=== PATIENT | female | born 1990 | race Caucasian/White ===

== ENCOUNTER 2017-01-30 17:45 | Inpatient (IN) | payer MEDICAID, OTHER ==
[~2017-01-30] VITALS: Ht 165.1 cm; Wt 123.0 kg
[~2017-01-30 17:45] MED LIST: HYDR-3533 PO; MONOTAB PO; PENI500T PO
[2017-01-30 20:10] VITALS: BP 120/66; PULSE 71; RESP 19; TEMP 100.2; O2SAT 99
[2017-01-30] MEDS ORDERED: SODIUM CHLOR 0.45% 1000 ML INJ 1,000 ML IV SCH (20:24)
[2017-01-30] MEDS ORDERED: SODIUM CHLORIDE 0.9% FLUSH 10 ML FLUSH IV FLUSH PRN (20:30)
[2017-01-30] MEDS ORDERED: SODIUM CHLOR 0.9% 1000 ML INJ 1,000 ML IV SCH (20:30)
[2017-01-30] MEDS ORDERED: NALOXONE HCL 0.4 MG/ML AMP IV PRN (20:30)
[2017-01-30] MEDS ORDERED: ONDANSETRON HCL 4 MG/2 ML VIAL IVP PRN (20:30)
[2017-01-30] MEDS ORDERED: SENNOSIDES 8.6 MG TAB PO PRN (20:30)
[2017-01-30] MEDS ORDERED: ACETAMINOPHEN 325 MG TAB PO PRN (20:30)
[2017-01-30] MEDS ORDERED: MAGNESIUM HYDROXIDE SUSP 30 ML CUP PO PRN (20:30)
[2017-01-30] MEDS ORDERED: ACETAMINOPHEN/HYDROcodone 325 MG/5 MG TAB PO PRN (20:45)
[2017-01-30] MEDS: SODIUM CHLORIDE 0.9% FLUSH 10 ML FLUSH IV FLUSH SCH (21:00)
[2017-01-30] MEDS: MORPHINE SULFATE 4 MG/ML INJ IV PUSH PRN (22:07)
[2017-01-31 00:52] VITALS: BP 107/61; PULSE 95; RESP 17; TEMP 99.4; O2SAT 99
[2017-01-31] MEDS: MORPHINE SULFATE 4 MG/ML INJ IV PUSH PRN ×2 (01:46→06:27)
[2017-01-31 04:01] VITALS: BP 114/58; PULSE 93; RESP 18; TEMP 99.9; O2SAT 100
[2017-01-31 05:47] LABS: AUTOMATED NEUTROPHIL # 7.3 TH/MM3 (1.8-7.7); BASOPHIL % 0.5 % (0.0-2.0); EOSINOPHIL % 0.3 % (0.0-4.0); HEMATOCRIT 33.9 % (35.0-46.0); HEMO FLAGS DIFF FINAL; LYMPH % 14.2 % (9.0-44.0); LYMPHOCYTE # 1.3 TH/MM3 (1.0-4.8); MEAN CELL VOLUME 87.2 FL (80.0-100.0); MEAN CORPUSCULAR HEMOGLOBIN 29.9 PG (27.0-34.0); MEAN CORPUSCULAR HGB CONC 34.3 % (32.0-36.0); MONO % 7.6 % (0.0-8.0); NEUT % 77.4 % (16.0-70.0); PLATELET COUNT 233 TH/MM3 (150-450); RED BLOOD COUNT 3.89 MIL/MM3 (4.00-5.30); RED CELL DISTRIBUTION WIDTH 12.7 % (11.6-17.2); WHITE BLOOD COUNT 9.5 TH/MM3 (4.0-11.0)
[2017-01-31 05:57] LABS: APTT (PATIENT) 26.1 SEC (24.3-30.1); PROTHROMBIN TIME - PATIENT 11.1 SEC (9.8-11.6)
[2017-01-31 06:15] LABS: ALKALINE PHOSPHATASE 48 U/L (45-117); ALT (GPT) 20 U/L (10-53); ANION GAP 7 MEQ/L (5-15); AST (GOT) 13 U/L (15-37); BICARBONATE 26.6 MEQ/L (21.0-32.0); BLOOD UREA NITROGEN 11 MG/DL (7-18); CHLORIDE 106 MEQ/L (98-107); GLOMERULAR FILTRATION RATE 93 ML/MIN (>89); POTASSIUM 4.1 MEQ/L (3.5-5.1); SODIUM (NA) 140 MEQ/L (136-145); TOTAL BILIRUBIN ADULT 0.3 MG/DL (0.2-1.0)
--- NOTE | 2017-01-31 07:02 | PD.ORT.PN ---
Subjective Subjective Remarks Fell when rockclimbing in [place] on Tuesday. Right talus fracture. No other complaints or injuries Objective Vitals Vital Signs Date Time Temp Pulse Resp B/P Pulse Ox O2 Delivery O2 Flow Rate FiO2 01/31/17 04:01 99.9 93 18 114/58 100 01/31/17 00:52 99.4 95 17 107/61 99 01/30/17 20:10 100.2 71 19 120/66 99 I/O 01/30/17 01/30/17 01/30/17 01/31/17 01/31/17 01/31/17 07:00 15:00 23:00 07:00 15:00 23:00 Intake Total 240 ml Balance 240 ml Intake Oral 240 ml # Voids 2 # Bowel Movements 0 Result Diagram: 01/31/17 0535 01/31/17 0535 Other Results Laboratory Tests Test 01/31/17 05:35 Prothrombin Time 11.1 SEC (9.8-11.6) Prothromb Time International 1.0 RATIO Ratio Objective Remarks Right lower extremity: Splint intact with mild swelling over talus no pain with knee or hip range of motion. Left lower extremity: Full range of motion neurovascularly intact Assessment & Plan Assessment and Plan Left talus fracture X-rays and CT reviewed from [facility] Nothing by mouth Surgery this morning with Dr. Thacker for open reduction internal fixation of talus We'll plan for discharge to home this evening or tomorrow Nigel Tello Jr. Jan 31, 2017 07:02
[2017-01-31] MEDS ORDERED: GENTAMICIN SULFATE 80 MG/2 ML VIAL ONE (07:05)
[2017-01-31 07:08] VITALS: BP 113/61; PULSE 86; RESP 16; TEMP 97.2; O2SAT 98
[2017-01-31] MEDS ORDERED: BUPIVACAINE/EPINEPHRINE 0.5% PF 30 ML VIAL ONE (07:09)
[2017-01-31] MEDS ORDERED: VANCOMYCIN HCL 1000 MG VIAL ONE (07:37)
[2017-01-31] MEDS ORDERED: SODIUM CHLOR 0.9% 250 ML INJ 250 ML ONE (07:37)
[2017-01-31] MEDS ORDERED: ceFAZolin 2 GM PREMIX 50 ML ONE (07:37)
[2017-01-31] MEDS ORDERED: DOCUSATE SODIUM 50 MG/SENNA 8.6 MG TAB PO PRN (07:45)
[2017-01-31] MEDS ORDERED: POVIDONE IODINE 5% (ANTISEPSIS KIT) 4 APPLICATIONS EACH NARE PRN (07:45)
[2017-01-31] MEDS ORDERED: CHLORHEXIDINE GLUCONATE 2 % 1 PACK (2 CLOTHS) TOPICAL PRN (07:45)
[2017-01-31] MEDS ORDERED: METOPROLOL TARTRATE 25 MG TAB PO PRN (07:45)
[2017-01-31] MEDS ORDERED: SODIUM CHLORID 0.9% 500 ML IV PRN (07:45)
[2017-01-31] MEDS ORDERED: INSULIN HUMAN REGULAR 1,000 UNITS/10 ML VIAL SQ PRN (07:45)
[2017-01-31] MEDS ORDERED: LACTATED RINGER'S 1000 ML IV PRN (08:00)
--- NOTE | 2017-01-31 08:01 | HHI.HP ---
HPI Service [facility] Hospitalists Primary Care Physician Unknown Admission Diagnosis talus fracture Diagnoses: (1) Talus fracture Diagnosis: Principal Chief Complaint: Ankle fracture Travel History International Travel<30 Days: No Contact w/Intl Traveler <30 Da: No Traveled to Known Affected Are: No History of Present Illness This pleasant 26-year-old female patient denies prior medical history. Patient reports she was outdoor rock climbing in [place] this Tuesday when she, "baled out of a climb, one foot hit the pad and the other did not." The patient was initially seen in a hospital in [place] told that she had a fracture that needed surgical intervention. Patient has a son and lives locally therefore they drove through the night so patient could have treatment locally. Initially seen at [facility] then transferred to [place] for ORIF right talus today. Patient reports her the pain in her right ankle is currently 5 out of 10. Initially when it was 10 out of 10 better with pain medication. Worse with weightbearing. Patient denies radiation of the pain. Patient has intact sensation right lower extremity, is able to wiggle toes and does have brisk cap refill of right lower extremity. Patient reports low-grade temperature 100.2 last night but denies cough congestion dysuria. Patient offers no other complaints denies shortness of breath chest pain nausea vomiting diarrhea constipation or chills. Review of Systems Except as stated in HPI: all other systems reviewed are Neg Past Family Social History Past Medical History denies prior medical history including diabetes hypertension and CAD CVA asthma Past Surgical History Breast augmentation Reported Medications Reports she takes no medications of daily basis at home Allergies: Coded Allergies: No Known Allergies (Verified , 05/03/15) Active Ordered Medications Current Medications Medications (Trade) Dose Ordered Sig/Dinh Route Start Time Stop Time Status Last Admin (NS Flush) 2 ml UNSCH PRN IV FLUSH 01/30/17 20:30 (NS Flush) 2 ml BID IV FLUSH 01/30/17 21:00 01/30/17 21:00 (Tylenol) 650 mg Q4H PRN PO 01/30/17 20:30 (Zofran Inj) 4 mg Q6H PRN IVP 01/30/17 20:30 (Milk Of [place] Liq) 30 ml Q12H PRN PO 01/30/17 20:30 (Senokot) 17.2 mg Q12H PRN PO 01/30/17 20:30 (Narcan Inj) 0.4 mg UNSCH PRN IV 01/30/17 20:30 ([place] 5-325 Mg) 1 tab Q4H PRN PO 01/30/17 20:45 Morphine Sulfate 2 mg 2 mg Q3H PRN IV PUSH 01/30/17 20:45 01/31/17 06:27 (Lr 1000 ml Inj) 1,000 ml @ 0 mls/hr Q0M PRN IV 01/31/17 08:00 02/03/17 07:59 Family History Mother had mild skin cancer denies other family history including CAD OK CVA COPD or anesthesia reaction Social History EtOH use occasional socially Denies tobacco use and denies illicit drug use Physical Exam Vital Signs Vital Signs Date Time Temp Pulse Resp B/P Pulse Ox O2 Delivery O2 Flow Rate FiO2 01/31/17 04:01 99.9 93 18 114/58 100 01/31/17 00:52 99.4 95 17 107/61 99 01/30/17 20:10 100.2 71 19 120/66 99 Physical Exam GENERAL: This is a well-nourished, well-developed patient, in no apparent distress. SKIN: No rashes, ecchymoses or lesions. Cool and dry. HEAD: Atraumatic. Normocephalic. No temporal or scalp tenderness. EYES: Pupils equal round and reactive. Extraocular motions intact. No scleral icterus. No injection or drainage. ENT: Nose without bleeding, purulent drainage or septal hematoma. Throat without erythema, tonsillar hypertrophy or exudate. Uvula midline. Airway patent. NECK: Trachea midline. No JVD or lymphadenopathy. Supple, nontender, no meningeal signs. CARDIOVASCULAR: Regular rate and rhythm without murmurs, gallops, or rubs. RESPIRATORY: Clear to auscultation. Breath sounds equal bilaterally. No wheezes , rales, or rhonchi. GASTROINTESTINAL: Abdomen soft, non-tender, nondistended. No hepato-splenomegaly , or palpable masses. No guarding. MUSCULOSKELETAL: Extremities without clubbing, cyanosis, or edema. No joint tenderness, effusion, or edema noted. No calf tenderness. Negative Homans sign bilaterally. Splint to right lower extremity NEUROLOGICAL: Awake and alert. No focal deficits appreciated. Motor and sensory grossly within normal limits. Five out of 5 muscle strength in all muscle groups, difficult to test strength right lower extremity is is currently a soft splint. Able to wiggle toes and right lower extremity and does have intact sensation. Normal speech. Laboratory Laboratory Tests Test 01/31/17 05:35 White Blood Count 9.5 Red Blood Count 3.89 Hemoglobin 11.7 Hematocrit 33.9 Mean Corpuscular Volume 87.2 Mean Corpuscular Hemoglobin 29.9 Mean Corpuscular Hemoglobin 34.3 Concent Red Cell Distribution Width 12.7 Platelet Count 233 Mean Platelet Volume 7.9 Neutrophils (%) (Auto) 77.4 Lymphocytes (%) (Auto) 14.2 Monocytes (%) (Auto) 7.6 Eosinophils (%) (Auto) 0.3 Basophils (%) (Auto) 0.5 Neutrophils # (Auto) 7.3 Lymphocytes # (Auto) 1.3 Monocytes # (Auto) 0.7 Eosinophils # (Auto) 0.0 Basophils # (Auto) 0.0 CBC Comment DIFF FINAL Differential Comment Prothrombin Time 11.1 Prothromb Time International 1.0 Ratio Activated Partial 26.1 Thromboplast Time Sodium Level 140 Potassium Level 4.1 Chloride Level 106 Carbon Dioxide Level 26.6 Anion Gap 7 Blood Urea Nitrogen 11 Creatinine 0.75 Estimat Glomerular Filtration 93 Rate Random Glucose 95 Calcium Level 8.6 Total Bilirubin 0.3 Aspartate Amino Transf 13 (AST/SGOT) Alanine Aminotransferase 20 (ALT/SGPT) Alkaline Phosphatase 48 Total Protein 6.8 Albumin 3.6 Result Diagram: 01/31/1735 01/31/17 0535 Imaging Profore the hospital reviewed reveals Right talus fracture Assessment and Plan Problem List: (1) Talus fracture ICD Code: S92.109A Status: Acute Assessment and Plan This pleasant 26-year-old female patient denies prior medical history. Patient reports she was outdoor rock climbing in [place] this Tuesday when she, "baled out of a climb, one foot hit the pad and the other did not." The patient was initially seen in a hospital in [place] told that she had a fracture (right talus ) that needed surgical intervention. Patient has a son and lives locally therefore they drove through the night so patient could have treatment locally. Right talus fracture Plan surgical intervention this a.m. with Dr. Bustos Anticoagulation per orthopedic surgery Pain medication per surgery Weight-bearing and rehabilitation per surgery recommendations Plan to discharge once cleared by surgery Full code Written by Claudine Jarvis, acting as scribe for Dr. Gallego on 01/31/17 at 08: 00. All or portions of this note were transcribed by scribchiara Jarvis. I, Dr. Lynn Gallego personally performed the history, physical exam, and medical decision making; and confirmed the accuracy of the information in the transcribed note. Authenticated by Dr. Lynn Gallego on 01/31/17 at 0800. Code Status full Physician Certification 2 Midnight Certification Type: Admission for Inpatient Services Order for Inpatient Services The services are ordered in accordance with Medicare regulations or non- Medicare payer requirements, as applicable. In the case of services not specified as inpatient-only, they are appropriately provided as inpatient services in accordance with the 2-midnight benchmark. Estimated LOS (days): 3 days is the estimated time the patient will need to remain in the hospital, assuming treatment plan goals are met and no additional complications. Post-Hospital Plan: Not yet determined Claudine Jarvis Jan 31, 2017 08:01 Lynn Gallego MD Jan 31, 2017 18:58
[2017-01-31] MEDS ORDERED: FAMOTIDINE 20 MG/2 ML VIAL ONE (08:08)
[2017-01-31] MEDS ORDERED: MIDAZOLAM HCL 2 MG/2 ML VIAL ONE (08:08)
[2017-01-31] MEDS ORDERED: DEXAMETHASONE SOD PHOS 4 MG/ML VIAL ONE (08:08)
[2017-01-31] MEDS ORDERED: ACETAMINOPHEN 1000 MG/100 ML VIAL IV ONE (08:08)
[2017-01-31 08:52] LABS: BETA HCG QUANT LESS THAN 1 MIU/ML (0-5)
[2017-01-31] MEDS ORDERED: ceFAZolin 2 GM PREMIX 50 ML IV ONE (09:00)
[2017-01-31] MEDS: SODIUM CHLORIDE 0.9% FLUSH 10 ML FLUSH IV FLUSH SCH ×2 (09:00→19:17)
--- NOTE | 2017-01-31 10:25 | HHI.PR ---
cc: Rayo Bustos MD Immediate Post Op Note Procedure Date: Jan 31, 2017 Pre Op Diagnosis: Comminuted right talus fracture Post Op Diagnosis: Surgeon: Rayo Bustos Fixed Wing Aircraft Flight Engineer(s): Kade Tello PA-C The surgical procedure was assisted by my physician pharmacy innovation assistant. My P.A. presence was necessary throughout this case for the manipulation and positioning of the surgical extremity. My P.A. was assisting me throughout the duration of this procedure. The skill set of a physician pharmacy innovation assistant was medically necessary to complete this procedure. During the surgical case the surgical instrument technician was working at the back table and the physician pharmacy innovation assistant was directly assisting me. Procedure: Open reduction internal fixation right talus Estimated blood loss: 50 cc Anesthesia: General Drains: None Patient to: PACU Patient Condition: Good Rayo Bustos MD Jan 31, 2017 10:25
[2017-01-31] MEDS ORDERED: Post-op Orders (for Pharmacy) MISC XX ONE (10:30)
[2017-01-31] MEDS ORDERED: MORPHINE SULFATE 4 MG/ML INJ IV PUSH PRN (10:30)
--- NOTE | 2017-01-31 10:32 | RADRPT ---
EXAM DATE/TIME: 01/31/2017 09:59 [facility] COMPARISON: FLUOROSCOPY PORTABLE UP TO 1HR, January 31, 2017, 0:00. INDICATIONS : Right talus fracture repair. OR. MEDICAL HISTORY : None. SURGICAL HISTORY : None. ENCOUNTER: Initial ACUITY: 1 day PAIN SCORE: Non-responsive. LOCATION: Right talus FINDINGS: The examination demonstrates multiple screws across the patient's comminuted talar fracture. The alig nment post fixation is good. CONCLUSION: The patient's talar fracture post fixation. Dominick Suggs MD on January 31, 2017 at 10:29 Board Certified Radiologist. This report was verified electronically.
[2017-01-31] MEDS ORDERED: HYDR-3366 PO (10:38)
[2017-01-31] MEDS ORDERED: fentaNYL CITRATE 250 MCG/5 ML AMP ONE (10:56)
[2017-01-31] MEDS ORDERED: *morphine SULFATE 8 MG/ML PERIprocedure ONLY ONE (11:21)
[2017-01-31] MEDS ORDERED: ONDANSETRON HCL 4 MG/2 ML VIAL IV PUSH ONE (12:00)
[2017-01-31] MEDS ORDERED: LACTATED RINGER'S 1000 ML INJ 1,000 ML IV ONE (12:00)
[2017-01-31] MEDS ORDERED: PHENYLEPH/NS 1000 MCG/10 ML SYR IV ONE (12:00)
[2017-01-31] MEDS ORDERED: NEOSTIGMINE 3 MG/3 ML SYR IV ONE (12:00)
[2017-01-31] MEDS ORDERED: PROPOFOL 200 MG/20 ML AMP IV ONE (12:00)
[2017-01-31 12:12] VITALS: O2SAT 98
--- NOTE | 2017-01-31 13:30 | MB ---
cc: ARTISMAYNOR DATE OF CONSULTATION: 01/31/2017 REASON FOR CONSULTATION Comminuted right talus fracture. CONSULTING PHYSICIAN Dr. Lynn Gallego HISTORY OF PRESENT ILLNESS Constantin is a 26-year-old female who was visiting [place]. She was rock climbing. She states that she had to bail out of her climb and fell approximately 12 feet. She landed with one foot on the pad and the other off the pad. She had immediate right ankle pain. She initially went to the hospital in [place]. She was placed into a splint. She lives in the [facility]. She presented back to [facility] and then was transferred to [place] for definitive treatment. She is currently awake and alert. She complains of right ankle pain. Pain is worse with movement and is improved with rest. Her only complaint is her right ankle. She has no dizziness, syncope or loss of consciousness. PAST MEDICAL HISTORY ILLNESSES None. SURGERIES Breast augmentation. MEDICATIONS None. ALLERGIES None. FAMILY HISTORY Positive for skin cancer in her mother. SOCIAL HISTORY The patient denies tobacco or drug use. She drinks alcohol occasionally. REVIEW OF SYSTEMS The patient denies headache, visual changes, neck pain, chest pain, shortness of breath, abdominal pain, nausea, vomiting or recent weight loss. She complains of right ankle pain. PHYSICAL EXAMINATION GENERAL: The patient is a well-developed, well-nourished 26-year-old female in no acute distress. She is awake and alert. She is alert and oriented x3. VITAL SIGNS: Temperature 97.2, pulse 86, respirations 16, blood pressure 115/61. O2 sat is 98% on room air. HEAD: The patient is normocephalic. Pupils are equal. NECK: Soft, nontender. Trachea is midline. ABDOMEN: Soft, nontender, nondistended. EXTREMITIES: Examination of bilateral upper extremities reveals no pain with shoulder, elbow or wrist motion. She has intact sensation in all fingers. She has good cap refill in all fingers. Skin is intact. Real Estate Valuer strength is +5. Radial pulses are palpable. Examination of left leg reveals no pain with hip, knee or ankle motion. Skin is intact. Dorsalis pedis pulse is palpable. Sensation is intact. Examination of right leg reveals no pain with hip or knee motion. She has mild swelling of her foot. She is tender to palpation over the talus. Dorsalis pedis pulse is palpable. Sensation is intact to her toes. IMAGING Radiographic x-rays and CT scan were reviewed from [facility]. The patient has a comminuted displaced right talar neck fracture. IMPRESSION Comminuted right talus fracture. PLAN The treatment options were discussed with the patient. I discussed open reduction, internal fixation of right talus fracture. The risks of surgery include bleeding, infection, injuries to arteries, nerves and blood vessels, nonunion, malunion, avascular necrosis, ankle arthritis, subtalar joint arthritis, pain, avascular necrosis, as well as medical complications including complications of anesthesia and blood clots. All questions were answered. I will plan on surgery today. A mid-level provider in my office (nurse practitioner or physician tutoring assistant) may see this patient on follow-up visits and continue to implement the objectives of this plan including: Starting or adjusting medications, injections , cast application, orthotics, brace application, physical therapy, radiological studies (including x-ray, MRI, CT, ultrasound, bone scan), vascular studies, neurologic studies, specialist consultation, and proceeding with surgical management, as appropriate. MD COLIN Villalta/VANNESSA /10:28 AM /1:15 PM LISE
[2017-01-31 15:05] VITALS: BP 124/60; PULSE 93; RESP 16; TEMP 98.2; O2SAT 97
[2017-01-31] MEDS: ACETAMINOPHEN/HYDROcodone 325 MG/10 MG TAB PO PRN ×2 (15:42→20:29)
[2017-01-31 20:00] VITALS: BP 100/61; PULSE 70; RESP 16; TEMP 98; O2SAT 98
[2017-02-01] VITALS: BP 112/58; PULSE 71; RESP 17; TEMP 96.8; O2SAT 98
[2017-02-01] MEDS: ACETAMINOPHEN/HYDROcodone 325 MG/10 MG TAB PO PRN ×2 (00:10→06:39)
[2017-02-01 04:00] VITALS: BP 109/73; PULSE 61; RESP 16; TEMP 96.9; O2SAT 99
[2017-02-01 04:47] LABS: BACTERIA, URINE OCC /hpf; BLOOD, URINE NEG (NEG); GLUCOSE,URINE NEG (NEG); HYALINE CAST, URINE 1 /lpf (RARE); KETONE, URINE 10 mg/dL (NEG); MUCUS URINE FEW /lpf (OCC); NITRITE,URINE NEG (NEG); PH, URINE 6.5 (5.0-8.5); SQUAMOUS EPITHELIAL CELL URINE 7 /hpf (0-5); TRANSITIONAL EPI CELLS, URINE <1 /hpf; URINE COLOR YELLOW (YELLW/STRAW)
[2017-02-01 04:50] LABS: COMMENT (UR) CULT NOT INDICATED; CULTURE IF INDICATED CULT NOT INDICATED
[2017-02-01 06:25] LABS: HEMATOCRIT 30.6 % (35.0-46.0); REVIEW FLAG FINAL
--- NOTE | 2017-02-01 06:42 | PD.ORT.PN ---
Subjective Subjective Remarks Resting comfortably with no new complaints Objective Vitals Vital Signs Date Time Temp Pulse Resp B/P Pulse Ox O2 Delivery O2 Flow Rate FiO2 02/01/17 04:00 96.9 61 16 109/73 99 02/01/17 00:00 96.8 71 17 112/58 98 01/31/17 20:00 98.0 70 16 100/61 98 01/31/17 15:05 98.2 93 16 124/60 97 01/31/17 12:12 98 21 01/31/17 11:45 98.0 73 15 118/74 97 Room Air 01/31/17 11:30 71 14 112/72 98 Room Air 01/31/17 11:15 70 14 122/73 99 Room Air 01/31/17 11:00 75 14 121/72 100 Room Air 01/31/17 10:48 98.2 92 14 120/67 100 Nasal Cannula 2 01/31/17 07:08 97.2 86 16 113/61 98 I/O 01/31/17 01/31/17 01/31/17 02/01/17 02/01/17 02/01/17 07:00 15:00 23:00 07:00 15:00 23:00 Intake Total 0 ml 1480 ml 240 ml 240 ml Output Total 75 ml Balance 0 ml 1405 ml 240 ml 240 ml Intake Oral 0 ml 480 ml 240 ml 240 ml IV Total 200 ml Other 800 ml Output Estimated Blood Loss 75 ml # Voids 1 2 1 1 # Bowel Movements 0 0 0 0 Result Diagram: 02/01/17 0527 01/31/17 0535 Imaging Last 72 hours Impressions Ankle X-Ray 01/31/17 0000 Signed Impressions: Service Date/Time: Tuesday, January 31, 2017 09:59 - CONCLUSION: The patient's talar fracture post fixation. Dominick Suggs MD Objective Remarks Right lower extremity: Splint intact , clean and dry. Intact sensation distally in all her toes and is able to move toes appropriately Left lower extremity: Full range of motion neurovascularly intact Assessment & Plan Assessment and Plan Left talus fracture status post open reduction internal fixation POD 1 Maintain splint Elevate Nonweightbearing left lower extremity Plan for discharge to home today follow-up with Dr. Bustos or [place] in 2 weeks Nigel Tello Jr. Feb 01, 2017 06:42
[2017-02-01 08:00] VITALS: BP 111/65; PULSE 76; RESP 19; TEMP 97.7; O2SAT 98
[2017-02-01] MEDS: SODIUM CHLORIDE 0.9% FLUSH 10 ML FLUSH IV FLUSH SCH (08:04)
[2017-02-01 09:32] VITALS: O2SAT 98
[2017-02-01] MEDS ORDERED: PERI8.6T PO (11:31)
--- NOTE | 2017-02-01 11:34 | HHI.PR ---
Subjective Remarks Pt feeling better. Pain is well controlled. Denies any CP/SOB/N/V Objective Vitals Vital Signs Date Time Temp Pulse Resp B/P Pulse Ox O2 Delivery O2 Flow Rate FiO2 02/01/17 08:00 97.7 76 19 111/65 98 02/01/17 04:00 96.9 61 16 109/73 99 02/01/17 00:00 96.8 71 17 112/58 98 01/31/17 20:00 98.0 70 16 100/61 98 01/31/17 15:05 98.2 93 16 124/60 97 01/31/17 12:12 98 21 01/31/17 11:45 98.0 73 15 118/74 97 Room Air I/O 01/31/17 01/31/17 01/31/17 02/01/17 02/01/17 02/01/17 07:00 15:00 23:00 07:00 15:00 23:00 Intake Total 0 ml 1480 ml 240 ml 240 ml Output Total 75 ml Balance 0 ml 1405 ml 240 ml 240 ml Intake Oral 0 ml 480 ml 240 ml 240 ml IV Total 200 ml Other 800 ml Output Estimated Blood Loss 75 ml # Voids 1 2 1 1 # Bowel Movements 0 0 0 0 Result Diagram: 02/01/17 0527 01/31/17 0535 Imaging Last Impressions Ankle X-Ray 01/31/17 0000 Signed Impressions: Service Date/Time: Tuesday, January 31, 2017 09:59 - CONCLUSION: The patient's talar fracture post fixation. Dominick Suggs MD Objective Remarks GENERAL: This is a well-nourished, well-developed patient, in no apparent distress. CARDIOVASCULAR: Regular rate and rhythm without murmurs, gallops, or rubs. RESPIRATORY: Clear to auscultation. Breath sounds equal bilaterally. No wheezes GASTROINTESTINAL: Abdomen soft, non-tender, nondistended. No hepato-splenomegaly , or palpable masses. No guarding. MUSCULOSKELETAL: Extremities without edema. splint/dressing over right extremity NEUROLOGICAL: Awake and alert. Motor and sensory grossly otherwise normal limits. Normal speech. A/P Problem List: (1) Talus fracture ICD Code: S92.109A Status: Acute Assessment and Plan Left talus fracture status post open reduction internal fixation POD 1 oper ortho, she should Maintain splint and Elevate LE Nonweightbearing left lower extremity follow-up with Dr. Bustos or [place] in 2 weeks scripts for pain meds and stool softner in chart Lynn Gallego MD Feb 01, 2017 11:34
[2017-02-01 11:44] VITALS: BP 104/72; PULSE 90; RESP 18; TEMP 98.5; O2SAT 99
--- NOTE | 2017-02-02 14:15 | MP ---
cc: RAYO THACKER DATE OF SURGERY: 01/31/2017 PREOPERATIVE DIAGNOSIS Comminuted right talus fracture. POSTOPERATIVE DIAGNOSIS Comminuted right talus fracture. SURGEON Rayo Thacker MD ASSISTANTS Kade Tello PA-C The surgical procedure was assisted by my physician elementary assistant principal. My P.A. presence was necessary throughout this case for the manipulation and positioning of the surgical extremity. My P.A. was assisting me throughout the duration of this procedure. The skill set of a physician elementary assistant principal was medically necessary to complete this procedure. During the surgical case the surgical orderly was working at the back table and the physician elementary assistant principal was directly assisting me. PROCEDURE Open reduction, internal fixation of comminuted right talus fracture. ESTIMATED BLOOD LOSS 50 cc. PLAN OF ACTIVITY Strict non-weightbearing. DETAILS OF PROCEDURE Constantin is a 26-year-old female who was rock climbing two days ago when she fell approximately 12 feet. Informed consent was obtained. The operative site was marked. I had a detailed discussion with the patient regarding the risks and benefits of surgery as well as potential complications. All questions were answered. She was brought to the operating room and placed on the OR table. She was given IV sedation and general anesthesia. The right leg was prepped with alcohol followed by Hibiclens and draped in the usual sterile fashion. She received IV antibiotics. A timeout procedure was performed. The procedure began with a three-inch incision over the lateral aspect of the ankle and talus. The subcutaneous tissue was dissected with Bovie. A standard lateral approach to the talus was utilized. The extensor digitorum brevis was mobilized to allow for visualization of the talar neck. There was significant comminution of the fracture. At this point a second incision was made over the medial aspect of the talus. The subcutaneous tissue was dissected with Bovie. The joint capsule was opened with Bovie. A small portion of the navicular bone was excised using an osteotome to allow better visualization of the talar head. At this point attention was turned to reduction. There was comminution of the fracture site. There were multiple small bone fragments entrapped within the fracture. These were removed to allow for reduction. At this point the fracture fragments were mobilized. The talar neck was reduced first. K-wires were used to hold provisional fixation. Both the medial and lateral sides of the talar neck appeared in excellent alignment. There was also a lateral process of the talus fracture. This was also manually reduced. This keyed into excellent alignment. K-wires were used to hold provisional fixation. At this point two Synthes guide pins for the 4.0 cannulated screws were placed through the medial side of the talar head into the talar body. Fluoroscopy confirmed appropriate guide pin placement. Screw lengths were measured. A countersink was utilized. Two appropriate length screws were placed. Good compression was applied. The screw heads were placed beneath the articular surface to avoid articular surface irritation. An additional 3.5 cortical screw was placed across the lateral aspect of the talar neck. An additional 2.7 cortical lag screw was placed across the lateral process fragment. K-wires were removed. Final fluoroscopy revealed excellent alignment of fracture with well-placed hardware. The incision was thoroughly irrigated. The fascia was closed with #1 Vicryl. The subcutaneous tissue was closed with 3-0 Vicryl and skin was closed with 3-0 nylon. Sterile dressings were applied. The patient was awakened and transferred to the recovery room in stable condition. MD COLIN Villalta/VANNESSA /10:32 AM /2:02 PM
== END 2017-02-01 13:34 | disposition home or self-care (01) | DRG 505 ==
LOC: N06A 17:45
PROVIDERS: ADMIT Hospitalist; ATTEND Hospitalist
PROC: 0QSL04Z Reposition Right Tarsal with Internal Fixation Device, Open Approach (ICD-10-PCS; principal; 2017-01-31 08:25)
DX: S92.101A Unspecified fracture of right talus, initial encounter for closed fracture (principal); W17.89XA Other fall from one level to another, initial encounter; Y93.31 Activity, mountain climbing, rock climbing and wall climbing; Y92.89 Other specified places as the place of occurrence of the external cause
CPT/HCPCS: 73610; 76000; 80053; 81001; 84702; 85014; 85018; 85025; 85610; 85730; 94150; C1713; J0131; J0690; J1100; J1580; J2250; J2270; J2370; J2405; J2710; J3010; J3370; J7030; J7050; J7120

== ENCOUNTER 2017-12-13 09:21 | Emergency (ER) | payer MEDICAID ==
[~2017-12-13] VITALS: Ht 165.1 cm; Wt 54.5 kg
[~2017-12-13 09:21] MED LIST changes: +HYDR-3366 PO; +PERI8.6T PO
[2017-12-13 09:22] VITALS: BP 118/63; PULSE 93; RESP 18; TEMP 99.2; O2SAT 100
[2017-12-13] MEDS ORDERED: SODIUM CHLOR 0.9% 1000 ML INJ 1,000 ML IV ONE (10:00)
[2017-12-13] MEDS ORDERED: SODIUM CHLORIDE 0.9% FLUSH 10 ML FLUSH IVF PRN (10:00)
[2017-12-13] MEDS ORDERED: KETOROLAC TROMETHAMINE 30 MG/ML (IVP) VIAL IVP ONE (10:00)
[2017-12-13] MEDS ORDERED: ONDANSETRON HCL 4 MG/2 ML VIAL IVP ONE (10:00)
--- NOTE | 2017-12-13 10:00 | PD ---
HPI . Flank pain Chief Complaint: Complaint Time Seen by Provider: 09:44 Travel History International Travel<30 days: No Contact w/Intl Traveler<30days: No Traveled to known affect area: No History of Present Illness HPI Patient presents with right flank pain. Onset was actually a couple weeks ago. The pain initially waxed and waned, came and went. It became acutely worse yesterday. It is now associated with fevers and chills. The pain is rated 6/ 10. She has also had nausea. She states that she had symptoms of a urinary tract infection 2 weeks ago quitting dysuria, frequency and urgency. She did not seek medical care at that time and did not take any [id number] medications for it. This spontaneously resolved after about a week. She does not currently have any symptoms of urinary tract infection. She states that she has a friend who said that Dorene. She states that he checked her urine yesterday and found signs of infection. He gave her Cipro. She has had 2 doses. She has not noted any improvement in her symptoms with the Cipro. REPLACED BY [facility] Past Medical History Medical History: Denies Significant Hx Cancer: No Cardiovascular Problems: No Endocrine: No Genitourinary: No Musculoskeletal: No Neurologic: No Psychiatric: No Respiratory: No Tetanus Vaccination: Unknown Influenza Vaccination: No ?: Not LMP: 11/04/17 Past Surgical History Other Surgery: Yes (breast augmentation) Social History Alcohol Use: Yes (occasionally) Tobacco Use: No Substance Use: No Allergies-Medications (Allergen,Severity, Reaction): Coded Allergies: No Known Allergies (Verified Adverse Reaction, Unknown, 12/13/17) Reported Meds & Prescriptions Reported Meds & Active Scripts Active No Active Prescriptions or Reported Medications Review of Systems Except as stated in HPI: all other systems reviewed are Neg General / Constitutional: Positive: Fever, Chills Gastrointestinal: Positive: Nausea, No: Vomiting Genitourinary: Positive: Flank Pain, No: Urgency, Frequency, Dysuria Physical Exam Narrative GENERAL: Awake and alert. She looks comfortable. SKIN: warm/dry. Normal color and turgor. HEAD: Normocephalic. Atraumatic. EYES: Pupils equal and round. No scleral icterus. No injection or drainage. ENT: No nasal bleeding or discharge. Mucous membranes pink and moist. NECK: Trachea midline. Full range of motion without pain.. CARDIOVASCULAR: Regular rate and rhythm. RESPIRATORY: No accessory muscle use. Clear to auscultation. Breath sounds equal bilaterally. GASTROINTESTINAL: Abdomen soft. Nontender. Bowel sounds present. Nondistended. : Positive right CVA tenderness. MUSCULOSKELETAL: No obvious deformities. NEUROLOGICAL: Awake and alert. No obvious cranial nerve deficits. Motor grossly within normal limits. Normal speech. PSYCHIATRIC: Appropriate mood and affect; insight and judgment normal. Data Data Last Documented VS Vital Signs Date Time Temp Pulse Resp B/P (MAP) Pulse Ox O2 Delivery O2 Flow Rate FiO2 12/13/17 09:22 99.2 93 18 118/63 (81) 100 Room Air Orders Orders Basic Metabolic Panel (Bmp) (12/13/17 09:46) Complete Blood Count With Diff (12/13/17 09:46) Urinalysis - C+S If Indicated (12/13/17 09:46) Ct Abd/Pel W/O Iv Contrast (12/13/17 09:46) Iv Access Insert/Monitor (12/13/17 09:46) Ketorolac Inj (Toradol Inj) (12/13/17 10:00) Ondansetron Inj (Zofran Inj) (12/13/17 10:00) Sodium Chloride 0.9% Flush (Ns Flush) (12/13/17 10:00) Sodium Chlor 0.9% 1000 Ml Inj (Ns 1000 M (12/13/17 10:00) Ed Urine Pregnancytest Poc (12/13/17 09:46) Urine Culture (12/13/17 10:10) Labs Laboratory Tests Test 12/13/17 10:10 White Blood Count 8.8 TH/MM3 Red Blood Count 4.09 MIL/MM3 Hemoglobin 12.8 GM/DL Hematocrit 36.9 % Mean Corpuscular Volume 90.0 FL Mean Corpuscular Hemoglobin 31.2 PG Mean Corpuscular Hemoglobin Concent 34.7 % Red Cell Distribution Width 12.6 % Platelet Count 225 TH/MM3 Mean Platelet Volume 7.5 FL Neutrophils (%) (Auto) 75.7 % Lymphocytes (%) (Auto) 13.6 % Monocytes (%) (Auto) 10.0 % Eosinophils (%) (Auto) 0.5 % Basophils (%) (Auto) 0.2 % Neutrophils # (Auto) 6.6 TH/MM3 Lymphocytes # (Auto) 1.2 TH/MM3 Monocytes # (Auto) 0.9 TH/MM3 Eosinophils # (Auto) 0.0 TH/MM3 Basophils # (Auto) 0.0 TH/MM3 CBC Comment DIFF FINAL Differential Comment Urine Color YELLOW Urine Turbidity HAZY Urine pH 6.0 Urine Specific [place] 1.021 Urine Protein 30 mg/dL Urine Glucose (UA) NEG mg/dL Urine Ketones 10 mg/dL Urine Occult Blood MOD Urine Nitrite NEG Urine Bilirubin NEG Urine Urobilinogen LESS THAN 2.0 MG/DL Urine Leukocyte Esterase LARGE Urine RBC 10 /hpf Urine WBC 48 /hpf Urine WBC Clumps RARE Urine Squamous Epithelial Cells 10 /hpf Urine Transitional Epithelial Cells <1 /hpf Urine Renal Epithelial Cells 1 /hpf Urine Bacteria RARE /hpf Urine Mucus FEW /lpf Microscopic Urinalysis Comment CULTURE INDICATED Blood Urea Nitrogen 12 MG/DL Creatinine 0.86 MG/DL Random Glucose 65 MG/DL Calcium Level 8.6 MG/DL Sodium Level 140 MEQ/L Potassium Level 3.5 MEQ/L Chloride Level 106 MEQ/L Carbon Dioxide Level 28.7 MEQ/L Anion Gap 5 MEQ/L Estimat Glomerular Filtration Rate 80 ML/MIN [facility] Medical Decision Making Medical Screen Exam Complete: Yes Emergency Medical Condition: Yes Differential Diagnosis Differential diagnosis of flank pain includes but is not limited to kidney stone , pyelonephritis, musculoskeletal pain, PE Narrative Course Patient presents with flank pain associated with fevers and chills. She states that her urine was examined yesterday by digital music instructor with signs of infection. She'll be evaluated for possible pyelonephritis or renal calculus. While awaiting her workup, she'll be treated with IV fluids, IV Zofran and IV Toradol. CBC & BMP Diagram 12/13/17 10:10 Calcium Level 8.6 UA>>large LE, 10 RBCs, 48 WBCs, rare WBC clumps, rare bact Last Impressions Abdomen/Pelvis CT 12/13/17 0989 Signed Impressions: Service Date/Time: Wednesday, December 13, 2017 10:29 - CONCLUSION: 1. 3 nonobstructing renal calculi on the right. The largest stone measures 9 mm. 2. No acute abnormality observed. Vadim Schmitz Jr., MD I will give her a dose of Rocephin. Will give her a referral to urology. Diagnosis Primary Impression: Flank pain Additional Impressions: Urinary tract infection Qualified Codes: N30.00 - Acute cystitis without hematuria Renal calculi Referrals: Waylon Olguin MD 2 days Patient Instructions: General Instructions, Kidney Stones (DC), Urinary Tract Infection in Women (DC) Additional Instructions: Continue the Cipro for now. We will let you know if it needs to be changed. It is imperative that you follow-up with urology in the near future. Med/Other Pt SpecificInfo: Prescription(s) given Scripts Promethazine (Phenergan) 25 Mg Tablet 25 MG PO Q6H Y for NAUSEA OR VOMITING, #15 TAB 0 Refills Prov: Jayla Kahn MD 12/13/17 Hydrocodone-Acetaminophen ([place]) 5 Mg-325 Mg Tab 1 TAB PO Q4H Y for PAIN, #15 TAB 0 Refills Prov: Jayla Kahn MD 12/13/17 Tamsulosin (Flomax) 0.4 Mg Cap 0.4 MG PO HS for Manage Prostate Problems, #30 CAP 0 Refills Prov: Jayla Kahn MD 12/13/17 Disposition: 01 DISCHARGE HOME Condition: Stable Jayla Kahn MD Dec 13, 2017 10:00
[2017-12-13 10:34] LABS: AUTOMATED NEUTROPHIL # 6.6 TH/MM3 (1.8-7.7); BASOPHIL % 0.2 % (0.0-2.0); EOSINOPHIL % 0.5 % (0.0-4.0); HEMATOCRIT 36.9 % (35.0-46.0); HEMOGLOBIN 12.8 GM/DL (11.6-15.3); LYMPH % 13.6 % (9.0-44.0); LYMPHOCYTE # 1.2 TH/MM3 (1.0-4.8); MEAN CORPUSCULAR HEMOGLOBIN 31.2 PG (27.0-34.0); MEAN CORPUSCULAR HGB CONC 34.7 % (32.0-36.0); MEAN PLATELET VOLUME 7.5 FL (7.0-11.0); MONOCYTE # 0.9 TH/MM3 (0-0.9); NEUT % 75.7 % (16.0-70.0); PLATELET COUNT 225 TH/MM3 (150-450); RED BLOOD COUNT 4.09 MIL/MM3 (4.00-5.30); RED CELL DISTRIBUTION WIDTH 12.6 % (11.6-17.2); WHITE BLOOD COUNT 8.8 TH/MM3 (4.0-11.0)
[2017-12-13 10:48] LABS: BACTERIA, URINE RARE /hpf; BILIRUBIN, URINE NEG (NEG); BLOOD, URINE MOD (NEG); GLUCOSE,URINE NEG (NEG); KETONE, URINE 10 mg/dL (NEG); MUCUS URINE FEW /lpf (OCC); NITRITE,URINE NEG (NEG); RENAL EPITHELIAL CELLS 1 /hpf; SQUAMOUS EPITHELIAL CELL URINE 10 /hpf (0-5); TRANSITIONAL EPI CELLS, URINE <1 /hpf; URINE COLOR YELLOW (YELLW/STRAW); URINE LEUKOCYTE ESTERASE LARGE (NEG); WHITE BLOOD CELL CLUMPS RARE
--- NOTE | 2017-12-13 10:50 | RADRPT ---
EXAM DATE/TIME: 12/13/2017 10:29 [facility] COMPARISON: No previous studies available for comparison. INDICATIONS : Right flank pain. Nausea, fever. ORAL CONTRAST: No oral contrast ingested. RADIATION DOSE: 6.77 CTDIvol (mGy) MEDICAL HISTORY : None SURGICAL HISTORY : None. ENCOUNTER: Initial ACUITY: 1 day PAIN SCALE: 6/10 LOCATION: Right flank TECHNIQUE: Volumetric scanning of the abdomen and pelvis was performed. Using automated exposure control and ad justment of the mA and/or kV according to patient size, radiation dose was kept as low as reasonably achievable to obtain optimal diagnostic quality images. DICOM format image data is available electro nically for review and comparison. FINDINGS: LOWER LUNGS: The visualized lower lungs are clear. LIVER: Homogeneous density without lesion. There is no dilation of the biliary tree. No calcified gallston es. SPLEEN: Normal size without lesion. PANCREAS: Within normal limits. KIDNEYS: 3 nonobstructing stones seen on the right. The largest measures 9 mm. No stones on the left. No urete ral stones or hydronephrosis on either side. No perinephric stranding. ADRENAL GLANDS: Within normal limits. VASCULAR: There is no aortic aneurysm. BOWEL/MESENTERY: The stomach, small bowel, and colon demonstrate no acute abnormality. There is no free intraperitone al air or fluid. ABDOMINAL WALL: Within normal limits. RETROPERITONEUM: There is no lymphadenopathy. BLADDER: No wall thickening or mass. REPRODUCTIVE: Within normal limits. INGUINAL: There is no lymphadenopathy or hernia. MUSCULOSKELETAL: Within normal limits for patient age. CONCLUSION: 1. 3 nonobstructing renal calculi on the right. The largest stone measures 9 mm. 2. No acute abnormality observed. Vadim Schmitz Jr., MD on December 13, 2017 at 10:45 Board Certified Radiologist. This report was verified electronically.
[2017-12-13 10:58] LABS: BICARBONATE 28.7 MEQ/L (21.0-32.0); CALCIUM 8.6 MG/DL (8.5-10.1); CREATININE 0.86 MG/DL (0.50-1.00)
[2017-12-13] MEDS ORDERED: PROM25TA10 PO (11:04)
[2017-12-13] MEDS ORDERED: TAMS5CAP PO (11:04)
[2017-12-13] MEDS ORDERED: NORC5TAB PO (11:04)
[2017-12-13] MEDS ORDERED: cefTRIAXone INJ 1,000 MG in SODIUM CHLORIDE 0.9% INJ 100 ML IV ONE (11:15)
[2017-12-13 11:48] VITALS: BP 120/65; PULSE 85; RESP 16; O2SAT 100
== END 2017-12-13 11:49 | disposition home or self-care (01) ==
LOC: NEPD 09:21
DX: N30.00 Acute cystitis without hematuria (principal); N20.0 Calculus of kidney
CPT/HCPCS: 74176; 80048; 81001; 84703; 85025; 87086; 96361; 96365; 96375; 99284; J0696; J1885; J2405; J7030

== ENCOUNTER → 2018-01-18 | Day surgery (SDC) | payer MEDICAID ==
[~2018-01-18] VITALS: Ht 165.1 cm; Wt 52.8 kg
[~2018-01-18] MED LIST changes: +CHLORHEXIDINE GLUCONATE 2 % 1 PACK (2 CLOTHS) TOPICAL PRN; -HYDR-3366 PO; -HYDR-3533 PO; +LACTATED RINGER'S 1000 ML IV PRN; +LIDOCAINE HCL 1% PF 5 ML SYRINGE OTHER ONE; +METOPROLOL TARTRATE 25 MG TAB PO PRN; +MIDAZOLAM HCL 2 MG/2 ML VIAL ONE; -MONOTAB PO; +MORPHINE SULFATE 2 MG/ML INJ IV PRN; +NORC5TAB PO; +ONDANSETRON HCL 4 MG/2 ML VIAL IV PUSH PRN; -PENI500T PO; -PERI8.6T PO; +POVIDONE IODINE 5% (ANTISEPSIS KIT) 4 APPLICATIONS EACH NARE PRN; +PROM25TA10 PO; +PROPOFOL 200 MG/20 ML AMP IV ONE; +PROPOFOL 500 MG/50 ML INJ 50 ML ONE; +SODIUM CHLORID 0.9% 500 ML IV PRN; +TAMS5CAP PO; +ceFAZolin 1,000 MG/NS 100 ML IV SCH; +oxyCODONE/ACETAMINOPHEN 5 MG/325 MG TAB ONE; +oxyCODONE/ACETAMINOPHEN 5 MG/325 MG TAB PO PRN
--- NOTE | 2018-01-18 09:45 | RADRPT ---
EXAM DATE/TIME: 01/18/2018 08:55 [facility] COMPARISON: No previous studies available for comparison. INDICATIONS : Pre op for lithotrypsy MEDICAL HISTORY : kidney stones SURGICAL HISTORY : None. ENCOUNTER: Initial ACUITY: 1 day PAIN SCORE: 0/10 LOCATION: Bilateral abdomen FINDINGS: 1 cm stone midportion right kidney. No calcifications on the left. CONCLUSION: Right renal stone. Paul Suggs MD FACR on January 18, 2018 at 9:41 Board Certified Radiologist. This report was verified electronically.
[2018-01-18 09:46] LABS: AUTOMATED NEUTROPHIL # 2.8 TH/MM3 (1.8-7.7); BASOPHIL % 0.5 % (0.0-2.0); EOSINOPHIL # 0.1 TH/MM3 (0-0.4); HEMATOCRIT 39.2 % (35.0-46.0); LYMPH % 33.6 % (9.0-44.0); LYMPHOCYTE # 1.6 TH/MM3 (1.0-4.8); MEAN CORPUSCULAR HEMOGLOBIN 29.9 PG (27.0-34.0); MEAN CORPUSCULAR HGB CONC 33.2 % (32.0-36.0); MEAN PLATELET VOLUME 8.4 FL (7.0-11.0); MONOCYTE # 0.3 TH/MM3 (0-0.9); NEUT % 56.9 % (16.0-70.0); PLATELET COUNT 205 TH/MM3 (150-450); RED BLOOD COUNT 4.35 MIL/MM3 (4.00-5.30); RED CELL DISTRIBUTION WIDTH 12.9 % (11.6-17.2); WHITE BLOOD COUNT 4.9 TH/MM3 (4.0-11.0)
--- NOTE | 2018-01-18 10:46 | PD.OP ---
Operative Report Date of Surgery: Jan 18, 2018 Preoperative Diagnosis: Right renal calculus Postoperative Diagnosis: Same Procedure: Left extracorporeal shockwave lithotripsy Anesthesia: MAC Surgeon: Dayne Fierro Front Desk Admin(s): None Resident Surgeon: None Operation and Findings: 27 year-old female findings a 1 cm right lower pole stone who elected to undergo right extraportal shockwave lithotripsy. Risk and benefits are discussed preoperative and she is willing to proceed. Patient brought to operative identified by myself as Constantin Vuong. She is placed on the operating table in the supine position, received preprocedure antibiotics and MAC anesthesia was administered. Under fluoroscopic imaging and ultrasound imaging guidance the stone was visualized in the right lower pole. ESWL therapy commenced and good fragmentation of the stone was visualized under fluoroscopy. She received total of 2500 shocks with a power level ranging from 2 and up to level V. She was awoken and transferred to her room in stable condition. She'll follow-up in the office in 2 weeks to undergo review of her x -ray and we will send stone for analysis at that time. Dayne Fierro DO Jan 18, 2018 10:46
[2018-01-18 11:25] VITALS: BP 112/75; PULSE 59; RESP 18; TEMP 97.5; O2SAT 100
== END | disposition home or self-care (01) ==
LOC: HSDC 08:21
PROVIDERS: ATTEND Urology
DX: N20.0 Calculus of kidney (principal); Z01.818 Encounter for other preprocedural examination
CPT/HCPCS: 00872; 50590; 74018; 85025; J0690; J2250; J3010; J7120